=== PATIENT | female | born 2000 | race Caucasian/White ===

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

== ENCOUNTER 2022-10-25 04:58 | Emergency (ER) | payer SELFPAY ==
[2022-10-25] MEDS ORDERED: Ketorolac Tromethamine 30 MG/ML VIAL ONE (05:25)
== END 2022-10-25 05:55 | disposition home or self-care (01) ==
LOC: ERS 04:58
DX: S93.401A Sprain of unspecified ligament of right ankle, initial encounter (principal); F10.129 Alcohol abuse with intoxication, unspecified; W18.30XA Fall on same level, unspecified, initial encounter; Y90.9 Presence of alcohol in blood, level not specified
CPT/HCPCS: 96372; J1885